=== PATIENT | male | born 1990 | race Asian ===

== ENCOUNTER 2021-09-25 22:12 | Emergency (ER) | payer SELFPAY ==
[~2021-09-25] VITALS: Ht 170.2 cm; Wt 93.2 kg
[2021-09-26 02:28] VITALS: BP 133/95
[2021-09-26] MEDS ORDERED: ibuprofen 200mg tablet PO ONE (05:40)
== END 2021-09-26 06:37 | disposition home or self-care (01) ==
LOC: ER 22:13
DX: R07.89 Other chest pain (principal); F17.210 Nicotine dependence, cigarettes, uncomplicated; V98.8XXA Other specified transport accidents, initial encounter; Y93.89 Activity, other specified; Y92.89 Other specified places as the place of occurrence of the external cause; Y99.8 Other external cause status
CPT/HCPCS: 71046; 99283